=== PATIENT | male | born 1965 | race Caucasian/White ===

== ENCOUNTER → 2023-08-01 07:06 | Outpatient (REF) | payer BC, SELFPAY | LOC: RAD 07:06 | PROVIDERS: ATTENDING PHYSICIAN Internal Medicine Gastroenterology; FAMILY PHYSICIAN Family Medicine | DX: R91.8 Other nonspecific abnormal finding of lung field (principal); K76.0 Fatty (change of) liver, not elsewhere classified; R07.81 Pleurodynia | CPT/HCPCS: 71046; 71250; 76700 ==

== ENCOUNTER → 2024-08-01 09:19 | Outpatient (REF) | payer BC, SELFPAY | LOC: RAD 09:19 | PROVIDERS: ATTENDING PHYSICIAN Internal Medicine Critical Care Medicine; FAMILY PHYSICIAN Family Medicine | DX: R91.8 Other nonspecific abnormal finding of lung field (principal) | CPT/HCPCS: 71250 ==

== ENCOUNTER → 2024-08-28 11:08 | Outpatient (REF) | payer BC, SELFPAY | LOC: REG 11:08 | PROVIDERS: ATTENDING PHYSICIAN Family Medicine | DX: M25.521 Pain in right elbow (principal); M77.11 Lateral epicondylitis, right elbow | CPT/HCPCS: 73080 ==